=== PATIENT | female | born 1975 | race Caucasian/White ===

== ENCOUNTER 2016-12-21 05:31 | Emergency (ER) | payer BC ==
[~2016-12-21] VITALS: Ht 170.2 cm; Wt 93.6 kg
[~2016-12-21 05:31] MED LIST: ASPI325T PO; CRUTCHES AXILLARY; LEVO-145 PO; LIDO2GEL12 TOP; LIDO5%T TOPICAL; MELA5TAB15 PO; NAPR220C22; NORC7.5T PO; PANT20TA2 PO; PEPC10TA PO; VENL100T PO; VITA20003 PO; Z.0.WALKERFRONT
[2016-12-21 05:38] VITALS: BP 154/99; PULSE 92; RESP 16; TEMP 98.3; O2SAT 98
[2016-12-21] MEDS ORDERED: VENL100T PO (05:58)
[2016-12-21] MEDS ORDERED: PANT20TA2 PO (05:58)
[2016-12-21] MEDS ORDERED: Birth Control PO (05:59)
--- NOTE | 2016-12-21 06:09 | PD ---
HPI Chief Complaint: Musculoskeletal Complaint Time Seen by Provider: 05:54 Travel History International Travel<30 days: No Contact w/Intl Traveler<30days: No Traveled to known affect area: No History of Present Illness HPI The patient is a 41-year-old female that was walking her dog last night at 8:30 PM when she twisted her foot. She complains of persistent pain in the metatarsals one through 3 dorsally on the foot. She has a history of fractured ankle that was repaired with pins, possibly screws and fractured great toe in the past. She denies any other injury. PFSH Past Medical History Anxiety: Yes (OCD) Depression: No Cancer: No Cardiovascular Problems: No High Cholesterol: No Chest Pain: No Congestive Heart Failure: No COPD: No Cerebrovascular Accident: No Diabetes: No Diminished Hearing: No Endocrine: No Gastrointestinal Disorders: Yes GERD: Yes Genitourinary: Yes Hiatal Hernia: No Immune Disorder: No Musculoskeletal: Yes Neurologic: Yes Psychiatric: Yes Reproductive: Yes (VULVAR VESTIBULITIS) Respiratory: Yes (SEASONAL ALLERGIES, RIGHT ETHMOID SINUS INVERTED PAPILLOMA ) Migraines: Yes Seizures: No Sleep Apnea: No Thyroid Disease: No Ulcer: No Tetanus Vaccination: < 5 Years Influenza Vaccination: No ?: Unknown LMP: Three weeks ago Past Surgical History Cardiac Surgery: No Eye Surgery: Yes (LAS. SURGERY TO CORRECT VISION) Gynecologic Surgery: Yes (VESTIBULECTOMY) Oral Surgery: Yes (TONSILLECTECTOMY) Pacemaker: No Thoracic Surgery: Yes (BREAST REDUCTION) Tonsillectomy: Yes Other Surgery: Yes (SINUS SURGERY) Social History Alcohol Use: Yes (Rarely) Tobacco Use: No Substance Use: No Allergies-Medications (Allergen,Severity, Reaction): Coded Allergies: No Known Allergies (Unverified , 12/21/16) Reported Meds & Prescriptions Reported Meds & Active Scripts Active Reported [ Control] 1 Tab PO DAILY Pantoprazole (Pantoprazole Sodium) 20 Mg Tab 20 Mg PO BID Effexor (Venlafaxine HCl) 100 Mg Tab 100 Mg PO Q12H Review of Systems Except as stated in HPI: all other systems reviewed are Neg Physical Exam Narrative GENERAL: The patient is alert, oriented 3 in minimal apparent distress with her right foot discomfort. Her vital signs show blood pressure 154/99 and heart rate of 92 but are otherwise normal. SKIN: Focused skin assessment warm/dry. HEAD: Atraumatic. Normocephalic. EYES: Pupils equal and round. No scleral icterus. No injection or drainage. ENT: No nasal bleeding or discharge. Mucous membranes pink and moist. NECK: Trachea midline. No JVD. CARDIOVASCULAR: Regular rate and rhythm. No murmur appreciated. RESPIRATORY: No accessory muscle use. Clear to auscultation. Breath sounds equal bilaterally. GASTROINTESTINAL: Abdomen soft, non-tender, nondistended. Hepatic and splenic margins not palpable. MUSCULOSKELETAL: No obvious deformities. No clubbing. No cyanosis. No edema. No ecchymoses are seen. There is no deformity but there is tenderness over the distal metatarsals 1 through 3. Good capillary refill and pinprick is present distally on all toes. NEUROLOGICAL: Awake and alert. No obvious cranial nerve deficits. Motor grossly within normal limits. Normal speech. PSYCHIATRIC: Appropriate mood and affect; insight and judgment normal. Data Data Last Documented VS Vital Signs Date Time Temp Pulse Resp B/P (MAP) Pulse Ox O2 Delivery O2 Flow Rate FiO2 12/21/16 05:38 98.3 92 16 154/99 (117) 98 Orders Orders Foot, Complete ([id number]) (12/21/16 06:02) [facility] Medical Decision Making Medical Screen Exam Complete: Yes Emergency Medical Condition: Yes Medical Record Reviewed: Yes Interpretation(s) X-rays of the right foot show no acute fracture. Differential Diagnosis Fracture foot, contusion foot Narrative Course The patient has a contusion of the foot. She works at home and does not need a work excuse and can take care of it at home. Diagnosis Primary Impression: Contusion of right foot Additional Instructions: As we discussed, try to walk on it without causing any pain. Continued pain means he should follow-up with a facility security officer. Med/Other Pt SpecificInfo: No Change to Meds Disposition: 01 DISCHARGE HOME Condition: Stable Ambrosio Boateng MD Dec 21, 2016 06:09
--- NOTE | 2016-12-21 06:32 | RADRPT ---
EXAM DATE/TIME: 12/21/2016 06:17 [facility] COMPARISON: No previous studies available for comparison. INDICATIONS : Right foot pain post fall yesterday MEDICAL HISTORY : None. SURGICAL HISTORY : None. ENCOUNTER: Initial ACUITY: 1 day PAIN SCORE: 5/10 LOCATION: Right dorsal surface of foot FINDINGS: Three view examination of the right foot demonstrates no soft tissue swelling, dislocation, or fractu re. The tarsal bones appear intact. The interphalangeal and metatarsophalangeal joints are intact. The calcaneus is intact. Bony mineralization is normal. CONCLUSION: 1. No acute findings. Previous fixation of the distal tibia and fibula. Willi Gan MD on December 21, 2016 at 6:25 Board Certified Radiologist. This report was verified electronically.
[2017-01-11] MEDS ORDERED: PANT20TA2 PO (16:51)
== END 2016-12-21 07:12 | disposition home or self-care (01) ==
LOC: PHED 05:31
DX: S90.31XA Contusion of right foot, initial encounter (principal); X50.1XXA Overexertion from prolonged static or awkward postures, initial encounter; Y93.K1 Activity, walking an animal
CPT/HCPCS: 73630; 99283